=== PATIENT | female | born 1990 | race Caucasian/White ===

== ENCOUNTER 2017-09-08 18:02 | Emergency (ER) | payer SELFPAY ==
[~2017-09-08] VITALS: Ht 160 cm; Wt 72.8 kg
[2017-09-08 18:20] VITALS: TEMP 37; Ht 160 cm; Wt 72.8 kg
[2017-09-08] MEDS ORDERED: FLUO20CA35 PO (18:57)
[2017-09-08] MEDS ORDERED: CEPH500C PO (18:57)
[2017-09-08] MEDS ORDERED: HYDR-3124 PO (18:57)
[2017-09-08] MEDS ORDERED: DEXAMETHASONE CONC 1 MG/ML 30 ML PO STA (19:08)
[2017-09-08] MEDS ORDERED: DEXAMETHASONE **PF** INJ 10 MG/ML VIAL PO ONE (19:30)
[2017-09-08 19:56] VITALS: BP 107/56; PULSE 69; O2SAT 98
--- NOTE | 2017-09-08 22:07 | EMERGENCY ROOM VISIT NOTE ---
History Report prepared by Uzma: Celso Goddard Under the Supervision of: Dr. Rodrigo Mae D.O. First contact with patient: 18:27 Chief Complaint: SKIN PROBLEM Stated Complaint: LARGE RED WELTS AND SORES ALL OVER History of Present Illness The patient is a 27 year old female who presents to the Emergency Room with complaints of persistent generalized skin rash beginning over a week ago. She localizes the rash to her legs, back and arms. She has been seen at [facility] twice, as well as [facility] for her symptoms. The patient states that her rash began on her shoulders and moved across her body. She describes the rash as red, and "welt-like". She denies any recent changes to her medication. The patient denies travel. She notes that she has been scratching the rash a lot. Her vaccinations are up to date. The patient notes that her significant other currently has a rash on his right forearm, and back that appears similar to how hers initially began. She has a history of chicken pox. The patient also complains of joint aching and fatigue. Source of History: patient Onset: Over a week ago Position: other (generalized) Quality: other (rash) Timing: other (persistent) Associated Symptoms: + fatigue Note: The patient also complains of joint aching. Review of Systems See HPI for pertinent positives & negatives. A total of 10 systems reviewed and were otherwise negative. Past Medical & Surgical Medical Problems: (1) No Known Active Medical Problems Family History No pertinent family history stated. Social History Smoking Status: Current Every Day Smoker Marital Status: Housing Status: lives with family Occupation Status: employed Current/Historical Medications Scheduled Cephalexin Monohydrate (Keflex), 500 MG PO Q12 Fluoxetine (Prozac), 20 MG PO DAILY Hydroxyzine Hcl (Atarax), 25 MG PO Q8 Allergies Coded Allergies: No Known Allergies (Unverified , 09/08/17) Physical Exam Vital Signs Date Time Temp Pulse Resp B/P (MAP) Pulse Ox O2 Delivery O2 Flow Rate FiO2 09/08/17 19:56 69 18 107/56 98 09/08/17 18:20 37.0 100 20 109/74 99 Room Air Physical Exam GENERAL: Sitting up in bed, alert, well appearing, well nourished, no distress, non-toxic EYE EXAM: normal conjunctiva. OROPHARYNX: no exudate, no erythema, lips, buccal mucosa, and tongue normal and mucous membranes are moist NECK: supple, no nuchal rigidity, no adenopathy, non-tender LUNGS: Clear to auscultation. Normal chest wall mechanics HEART: no murmurs, S1 normal and S2 normal ABDOMEN: abdomen soft, non-tender, normo-active bowel sounds, no masses, no rebound or guarding. BACK: Back is symmetrical on inspection and there is no deformity, no midline tenderness, no CVA tenderness. SKIN: Small vesicles on the right upper extremity with erythematous raised blanching lesions on the back and abdomen. Right forehead with small pustules. UPPER EXTREMITIES: upper extremities are grossly normal. RUE with small vesicles. No petechiae.Several small scabs. Small vesicles from the knees down. LOWER EXTREMITIES: No pitting edema. NEURO EXAM: Normal sensorium, cranial nerves II-XII grossly intact, normal speech, no gross weakness of arms, no gross weakness of legs. Medical Decision & Procedures Laboratory Results Test 09/08/17 19:00 Laboratory results per my review. Medications Administered Medications (Trade) Dose Ordered Sig/Cassi Route Start Time Stop Time Status Last Admin Dose Admin Dexamethasone Sodium Phosphate (Dexamethasone Inj Pf) 10 mg ONE ONCE PO 09/08/17 19:30 09/08/17 19:31 DC 09/08/17 19:53 10 MG ED Course ED COURSE: Vital signs were reviewed and showed tachycardia The patients medical record was reviewed The above diagnostic studies were performed and reviewed. ED treatments and interventions as stated above. 1828: The patient was evaluated in room B3B. A complete history and physical examination was performed. 1924: Upon reevaluation, the patient is resting comfortably. I discussed my findings with the patient and she understands and agrees with the treatment plan. Based on the patients age, coexisting illnesses, exam and lab findings the decision to treat as an outpatient was made. The patient remained stable while under my care. The patient appeared well at the time of discharge. 1930: Ordered Dexamethasone 10 mg PO. Medical Decision Differential diagnosis: Etiologies such as allergic reaction, anaphylaxis, urticaria, Ramsay-Tavares syndrome, toxic epidermal necrolysis, erythema multiforme, cellulitis, as well as others were entertained. Patient is a 27-year-old female who was seen multiple times at outside facilities for rash. Shots are up-to-date. She notes this has been progressing over the last 1.5 weeks. She was recently prescribed Keflex. On exam she does have several lesions which appear to be vesicular in nature on the right upper extremity. I do not feel this is classic chickenpox. Patient with multiple visits to ERs. Viral and bacterial cultures were sent. Blanching erythematous lesions on the back and abdomen. No fevers. No new medications. Recommended starting her Keflex which was recently prescribed and awaiting cultures. Given referral to dermatology. Of note boyienregino does have very similar rash but is very localized and small. Discussed with Pt concerning signs and symptoms to watch out for. Pt was instructed to follow up with their PCP and discussed with the patient their option to return to the ED at anytime for persistent or worsening symptoms. The appropriate anticipatory guidance and out-patient management, including indications for return to the emergency department, were explained at length to the patient and understood. Medication Reconcilliation Current Medication List: was personally reviewed by me Blood Pressure Screening Patient's blood pressure: Normal blood pressure Blood pressure disposition: Did not require urgent referral Impression Primary Impression: Rash Scribe Attestation The scribe's documentation has been prepared under my direction and personally reviewed by me in its entirety. I confirm that the note above accurately reflects all work, treatment, procedures, and medical decision making performed by me. Departure Information Dispostion Home / Self-Care Forms HOME CARE DOCUMENTATION FORM, IMPORTANT VISIT INFORMATION, WORK / SCHOOL INSTRUCTIONS Patient Instructions My [facility] Additional Instructions Please follow up with your primary care doctor with in the next 24 hours. Any worsening of your symptoms, please return to the ED immediately. This includes any fevers greater than 100.4, worsening pain, chest pain, shortness breath, persistent nausea, vomiting, unable to eat or drink, or any other concerning signs or symptoms from your standpoint. Please take antibiotics as prescribed. Please use Benadryl 50 mg every 8 hours as needed for itching. Please do not drive while taking this medication. Please call dermatology as listed below for the earliest appointment.
== END 2017-09-08 19:58 | disposition home or self-care (01) ==
LOC: C.EDB 18:04
DX: R21 Rash and other nonspecific skin eruption (principal); F17.200 Nicotine dependence, unspecified, uncomplicated; Z79.899 Other long term (current) drug therapy